=== PATIENT | female | born 1950 | race Caucasian/White ===

== ENCOUNTER → 2023-05-13 | Outpatient (CLI) | payer OTHER, MEDICARE | END | disposition home or self-care (01) | LOC: LAB 10:51 → RAD 10:51 | PROVIDERS: ATTEND Nurse Practitioner | DX: S72.402E Unspecified fracture of lower end of left femur, subsequent encounter for open fracture type I or II with routine healing (principal); S92.902D Unspecified fracture of left foot, subsequent encounter for fracture with routine healing; S82.141D Displaced bicondylar fracture of right tibia, subsequent encounter for closed fracture with routine healing; S92.001D Unspecified fracture of right calcaneus, subsequent encounter for fracture with routine healing; S82.841D Displaced bimalleolar fracture of right lower leg, subsequent encounter for closed fracture with routine healing; X58.XXXD Exposure to other specified factors, subsequent encounter ==

== ENCOUNTER → 2023-07-19 | Outpatient (CLI) | payer MEDICARE, OTHER | END | disposition home or self-care (01) | LOC: MAMMO 13:00 | PROVIDERS: ATTEND Internal Medicine | DX: N60.02 Solitary cyst of left breast (principal); N60.01 Solitary cyst of right breast; N63.11 Unspecified lump in the right breast, upper outer quadrant; N63.41 Unspecified lump in right breast, subareolar ==

== ENCOUNTER 2023-07-24 16:06 | Inpatient (IN) | payer MEDICARE, OTHER ==
[~2023-07-24] VITALS: Ht 157.5 cm; Wt 79.4 kg
[2023-07-24 16:16] VITALS: BP 203/101
[2023-07-24 16:36] LABS: HEMATOCRIT 34.1 % (37.0-47.0); MEAN CELL VOLUME 93.4 fl (81.0-99.0); MEAN CORPUSCULAR HGB CONC 31.1 g/dl (33.0-37.0); MEAN PLATELET VOLUME 11.8 fl (9.6-12.3); NUCLEATED RED BLOOD CELL 0.1 10*3/uL (0.0-0.0); NUCLEATED RED BLOOD CELL 0.3 % (0.0-0.0); PLATELET COUNT AUTOMATED 421 10*3/uL (130-400); RED BLOOD COUNT 3.65 10*6/uL (4.10-5.10); RED CELL DISTRI WIDTH 17.1 % (0-14.5); WHITE BLOOD COUNT 15.5 10*3/uL (4.8-10.8)
[2023-07-24 16:37] LABS: MANUAL DIFF REFLEX YES
[2023-07-24 16:39] VITALS: BP 165/100
[2023-07-24 16:51] LABS: BILIRUBIN Negative (Negative); BLOOD Negative (Negative); CLARITY Cloudy (Clear); COLOR Yellow (Yellow); GLUCOSE Trace (Negative); KETONE Negative (Negative); LEUKO ESTERASE Trace (Negative); NITRITE Positive (Negative); SPECIFIC GRAVITY 1.015 (1.001-1.030); UROBILINOGEN 0.2 E.U./dl (0.0-1.0)
[2023-07-24 16:59] LABS: ACT PARTIAL THROMBO TIME 29.6 SECONDS (20.0-32.1)
[2023-07-24 17:03] VITALS: BP 132/65
[2023-07-24 17:03] LABS: POTASSIUM 5.6 mmol/L (3.4-5.1); TOTAL PROTEIN 7.1 gm/dL (6.0-8.0)
[2023-07-24 17:05] LABS: ACANTHOCYTES FEW; ATYPICAL LYMPHS 1 % (0-0); HOWELL-JOLLY BODIES FEW; PLATELET SUFFICIENCY HIGH (NORMAL); TARGET CELLS MODERATE; TOTAL CELLS COUNTED 100 #CELLS
[2023-07-24 17:17] LABS: BACTERIA TRACE; WBC TNTC wbc/hpf (0-5)
[2023-07-24] MEDS ORDERED: CELEBREX100 MG PO (17:49)
[2023-07-24] MEDS ORDERED: COLACE100 MG PO (17:50)
[2023-07-24] MEDS ORDERED: PRISTIQ50 MG PO (17:50)
[2023-07-24] MEDS ORDERED: GLYCOLAX (17:51)
[2023-07-24] MEDS ORDERED: GABAPENTIN100 M2 PO (17:51)
[2023-07-24] MEDS ORDERED: LIPITOR10 MG PO (17:52)
[2023-07-24] MEDS ORDERED: LOVENOX30 MG/0.3 SC (17:52)
[2023-07-24] MEDS ORDERED: Ipratropium Brom3 ML INH (17:52)
[2023-07-24] MEDS ORDERED: KAPSPARGO SPRIN25 MG PO (17:53)
[2023-07-24 19:43] VITALS: BP 92/48
[2023-07-24 20:47] VITALS: BP 112/48
[2023-07-25] VITALS (8 sets, daily range): BP systolic 128–191; BP diastolic 71–100
[2023-07-25] MEDS ORDERED: TYLENOL325 M1 PO (01:51)
[2023-07-25] MEDS ORDERED: LOPRESSOR25 MG PO (01:54)
[2023-07-25] MEDS ORDERED: TRAMADOL HCL50 MG PO (01:55)
[2023-07-25] MEDS ORDERED: ATARAX,VISTARIL50 MG PO (01:57)
[2023-07-25] MEDS ORDERED: MIRALAX17 GM PO (01:58)
[2023-07-25] MEDS ORDERED: LACTAID3000 UNI1 PO (01:59)
[2023-07-25 02:02] LABS: BILIRUBIN Negative (Negative); BLOOD Negative (Negative); CLARITY Clear (Clear); COLOR Yellow (Yellow); GLUCOSE Negative (Negative); KETONE Negative (Negative); LEUKO ESTERASE Negative (Negative); NITRITE Negative (Negative); SPECIFIC GRAVITY >= 1.030 (1.001-1.030); UROBILINOGEN 0.2 E.U./dl (0.0-1.0)
[2023-07-25 02:15] LABS: CALCIUM OXALATE CRYSTALS Trace; WBC 0-2 wbc/hpf (0-5)
[2023-07-25 04:27] LABS: MEAN CELL VOLUME 91.2 fl (81.0-99.0); MEAN CORPUSCULAR HGB 29.1 pg (27.0-31.0); MEAN CORPUSCULAR HGB CONC 31.9 g/dl (33.0-37.0); MEAN PLATELET VOLUME 11.5 fl (9.6-12.3); NUCLEATED RED BLOOD CELL 0.2 % (0.0-0.0); PLATELET COUNT AUTOMATED 413 10*3/uL (130-400); RED BLOOD COUNT 3.51 10*6/uL (4.10-5.10); RED CELL DISTRI WIDTH 17.2 % (0-14.5); WHITE BLOOD COUNT 16.5 10*3/uL (4.8-10.8)
[2023-07-25 04:28] LABS: MANUAL DIFF REFLEX YES
[2023-07-25 04:37] LABS: ACT PARTIAL THROMBO TIME 40.2 SECONDS (20.0-32.1)
[2023-07-25 04:49] LABS: PLATELET SUFFICIENCY NORMAL (NORMAL); TOTAL CELLS COUNTED 100 #CELLS
[2023-07-25 05:05] LABS: POTASSIUM 5.2 mmol/L (3.4-5.1); TOTAL PROTEIN 6.8 gm/dL (6.0-8.0)
[2023-07-26] VITALS: BP 159/64
[2023-07-26 05:18] LABS: POTASSIUM 4.4 mmol/L (3.4-5.1)
[2023-07-26 06:16] LABS: HEMATOCRIT 31.8 % (37.0-47.0); MEAN CELL VOLUME 89.6 fl (81.0-99.0); MEAN CORPUSCULAR HGB 29.3 pg (27.0-31.0); MEAN CORPUSCULAR HGB CONC 32.7 g/dl (33.0-37.0); MEAN PLATELET VOLUME 12.4 fl (9.6-12.3); NUCLEATED RED BLOOD CELL 0.1 10*3/uL (0.0-0.0); NUCLEATED RED BLOOD CELL 0.4 % (0.0-0.0); PLATELET COUNT AUTOMATED 433 10*3/uL (130-400); RED BLOOD COUNT 3.55 10*6/uL (4.10-5.10); RED CELL DISTRI WIDTH 17.2 % (0-14.5); WHITE BLOOD COUNT 11.4 10*3/uL (4.8-10.8)
[2023-07-26 06:19] LABS: MANUAL DIFF REFLEX YES
[2023-07-26 07:29] LABS: HOWELL-JOLLY BODIES FEW; POLYCHROMASIA SLIGHT; TARGET CELLS FEW; TOTAL CELLS COUNTED 100 #CELLS
[2023-07-26 07:30] LABS: BURR CELLS FEW; PLATELET SUFFICIENCY HIGH (NORMAL)
[2023-07-26 08:00] VITALS: BP 165/88
[2023-07-26 12:00] VITALS: BP 170/94
[2023-07-26 16:00] VITALS: BP 163/82
[2023-07-26 20:00] VITALS: BP 168/83
[2023-07-27] VITALS: BP 135/65
[2023-07-27 05:26] LABS: POTASSIUM 3.9 mmol/L (3.4-5.1)
[2023-07-27 06:22] LABS: BASO % 0.2 % (0.0-1.0); HEMATOCRIT 33.1 % (37.0-47.0); LYMPH # 3.1 10*3/uL (1.3-4.4); LYMPH % 35.5 % (27.0-41.0); MEAN CELL VOLUME 89.7 fl (81.0-99.0); MEAN CORPUSCULAR HGB 29.3 pg (27.0-31.0); MEAN CORPUSCULAR HGB CONC 32.6 g/dl (33.0-37.0); MEAN PLATELET VOLUME 12.7 fl (9.6-12.3); MONO # 1.1 10*3/uL (0.1-1.0); NEUT # 4.4 10*3/uL (2.3-7.9); NUCLEATED RED BLOOD CELL 0.1 10*3/uL (0.0-0.0); PLATELET COUNT AUTOMATED 420 10*3/uL (130-400); RED BLOOD COUNT 3.69 10*6/uL (4.10-5.10); RED CELL DISTRI WIDTH 17.4 % (0-14.5); WHITE BLOOD COUNT 8.6 10*3/uL (4.8-10.8)
[2023-07-27 08:00] VITALS: BP 154/70
[2023-07-27 12:00] VITALS: BP 129/64
[2023-07-27 16:00] VITALS: BP 127/73
[2023-07-27 20:00] VITALS: BP 121/65
[2023-07-28] VITALS: BP 105/58
[2023-07-28 08:00] VITALS: BP 145/85
[2023-07-28 12:00] VITALS: BP 138/74
[2023-07-28 16:00] VITALS: BP 131/60
[2023-07-28 20:00] VITALS: BP 118/57
[2023-07-29] VITALS: BP 124/75
[2023-07-29 06:12] LABS: BUN 25 mg/dl (9-23); CHLORIDE 96 mmol/L (98-107); POTASSIUM 3.5 mmol/L (3.4-5.1)
[2023-07-29 08:00] VITALS: BP 128/70
[2023-07-29 12:00] VITALS: BP 130/78
[2023-07-29 16:00] VITALS: BP 113/54
[2023-07-29 20:00] VITALS: BP 119/51; BP 127/65
[2023-07-30] VITALS: BP 113/66
[2023-07-30 08:00] VITALS: BP 119/57
[2023-07-30 08:16] LABS: HEMATOCRIT 37.6 % (37.0-47.0); MEAN CELL VOLUME 89.1 fl (81.0-99.0); MEAN CORPUSCULAR HGB 28.7 pg (27.0-31.0); MEAN CORPUSCULAR HGB CONC 32.2 g/dl (33.0-37.0); MEAN PLATELET VOLUME 12.9 fl (9.6-12.3); NUCLEATED RED BLOOD CELL 0.4 % (0.0-0.0); PLATELET COUNT AUTOMATED 391 10*3/uL (130-400); RED BLOOD COUNT 4.22 10*6/uL (4.10-5.10); RED CELL DISTRI WIDTH 16.8 % (0-14.5); WHITE BLOOD COUNT 9.8 10*3/uL (4.8-10.8)
[2023-07-30 08:17] LABS: MANUAL DIFF REFLEX YES
[2023-07-30 08:31] LABS: BUN 27 mg/dl (9-23); CHLORIDE 92 mmol/L (98-107); POTASSIUM 3.1 mmol/L (3.4-5.1)
[2023-07-30 08:43] LABS: POLYCHROMASIA SLIGHT; TARGET CELLS FEW; TOTAL CELLS COUNTED 100 #CELLS
[2023-07-30 08:44] LABS: HOWELL-JOLLY BODIES FEW; OVALOCYTES FEW; PLATELET SUFFICIENCY NORMAL (NORMAL); ROULEAUX SLIGHT
[2023-07-30 12:00] VITALS: BP 122/70
[2023-07-30 16:00] VITALS: BP 115/62
[2023-07-30 20:00] VITALS: BP 90/53
[2023-07-31] VITALS: BP 101/44
[2023-07-31 07:57] VITALS: BP 109/53
[2023-07-31 08:52] LABS: BUN 35 mg/dl (9-23); CHLORIDE 91 mmol/L (98-107); POTASSIUM 2.9 mmol/L (3.4-5.1)
[2023-07-31 11:38] VITALS: BP 138/67
[2023-07-31 16:00] VITALS: BP 129/59
[2023-07-31 20:00] VITALS: BP 97/65
[2023-08-01] VITALS: BP 106/45
[2023-08-01 06:17] LABS: POTASSIUM 3.5 mmol/L (3.4-5.1)
[2023-08-01 07:46] LABS: HEMATOCRIT 39.7 % (37.0-47.0); MEAN CELL VOLUME 89.8 fl (81.0-99.0); MEAN CORPUSCULAR HGB 28.3 pg (27.0-31.0); MEAN CORPUSCULAR HGB CONC 31.5 g/dl (33.0-37.0); MEAN PLATELET VOLUME 12.8 fl (9.6-12.3); NUCLEATED RED BLOOD CELL 0.3 % (0.0-0.0); PLATELET COUNT AUTOMATED 366 10*3/uL (130-400); RED BLOOD COUNT 4.42 10*6/uL (4.10-5.10); RED CELL DISTRI WIDTH 16.7 % (0-14.5); WHITE BLOOD COUNT 12.7 10*3/uL (4.8-10.8)
[2023-08-01 07:50] LABS: MANUAL DIFF REFLEX YES
[2023-08-01 08:00] VITALS: BP 117/60
[2023-08-01 08:12] LABS: BURR CELLS FEW; HOWELL-JOLLY BODIES FEW; PLATELET SUFFICIENCY NORMAL (NORMAL); POLYCHROMASIA SLIGHT; SCHISTOCYTES FEW; TARGET CELLS FEW; TOTAL CELLS COUNTED 100 #CELLS
[2023-08-01 12:00] VITALS: BP 103/54
[2023-08-01] MEDS ORDERED: LISINOPRIL5 MG PO (14:13)
[2023-08-01] MEDS ORDERED: TORSEMIDE20 MG PO (14:13)
[2023-08-01] MEDS ORDERED: AMLODIPINE BESY10 MG PO (14:13)
[2023-08-01] MEDS ORDERED: GABAPENTIN100 M2 PO (14:13)
[2023-08-01] MEDS ORDERED: ASPIRIN ADULT L81 M2 PO (14:13)
[2023-08-01] MEDS ORDERED: K-TAB10 MEQ PO (14:13)
[2023-08-01] MEDS ORDERED: METOPROLOL SUCC25 M2 PO (14:13)
[2023-08-01] MEDS ORDERED: JARDIANCE10 MG PO (14:13)
[2023-08-01] MEDS ORDERED: ATORVASTATIN CA80 M1 PO (14:13)
[2023-08-01 16:00] VITALS: BP 116/57
[2023-08-01 20:00] VITALS: BP 90/44
[2023-08-02] VITALS: BP 113/55
[2023-08-02 07:19] LABS: HEMATOCRIT 40.3 % (37.0-47.0); MEAN CELL VOLUME 88.4 fl (81.0-99.0); MEAN CORPUSCULAR HGB 28.1 pg (27.0-31.0); MEAN CORPUSCULAR HGB CONC 31.8 g/dl (33.0-37.0); MEAN PLATELET VOLUME 13.2 fl (9.6-12.3); NUCLEATED RED BLOOD CELL 0.3 % (0.0-0.0); PLATELET COUNT AUTOMATED 344 10*3/uL (130-400); RED BLOOD COUNT 4.56 10*6/uL (4.10-5.10); RED CELL DISTRI WIDTH 16.7 % (0-14.5); WHITE BLOOD COUNT 15.1 10*3/uL (4.8-10.8)
[2023-08-02 07:42] LABS: CHLORIDE 88 mmol/L (98-107); POTASSIUM 3.5 mmol/L (3.4-5.1)
[2023-08-02 07:45] LABS: BUN 44 mg/dl (9-23)
[2023-08-02 07:49] LABS: MANUAL DIFF REFLEX YES
[2023-08-02 07:50] LABS: TOTAL CELLS COUNTED 100 #CELLS
[2023-08-02 07:51] LABS: PLATELET SUFFICIENCY NORMAL (NORMAL)
[2023-08-02 08:00] VITALS: BP 95/52
[2023-08-02 12:00] VITALS: BP 117/54
== END 2023-08-02 14:05 | DRG 871 ==
LOC: ED 16:06 → EDHOLD 22:45 → ICCU 22:45 → 4E 07-28 06:09
PROVIDERS: Family Medicine; Internal Medicine; Registered Nurse; Student in an Organized Health Care Education/Training Program; ADMIT Student in an Organized Health Care Education/Training Program; ATTEND Student in an Organized Health Care Education/Training Program
PROC: 5A09357 Assistance with Respiratory Ventilation, Less than 24 Consecutive Hours, Continuous Positive Airway Pressure (ICD-10-PCS; 2023-07-24)
PROC: 5A0935A Assistance with Respiratory Ventilation, Less than 24 Consecutive Hours, High Flow/Velocity Cannula (ICD-10-PCS; principal; 2023-07-25)
PROC: XW033E5 Introduction of Remdesivir Anti-infective into Peripheral Vein, Percutaneous Approach, New Technology Group 5 (ICD-10-PCS; 2023-07-26)
PROC: 5A0935A Assistance with Respiratory Ventilation, Less than 24 Consecutive Hours, High Flow/Velocity Cannula (ICD-10-PCS; 2023-07-26)
DX: A41.89 Other specified sepsis (principal); I21.4 Non-ST elevation (NSTEMI) myocardial infarction; U07.1 COVID-19; J69.0 Pneumonitis due to inhalation of food and vomit; N17.0 Acute kidney failure with tubular necrosis; J96.00 Acute respiratory failure, unspecified whether with hypoxia or hypercapnia; I50.33 Acute on chronic diastolic (congestive) heart failure; I16.1 Hypertensive emergency; N30.00 Acute cystitis without hematuria; J44.1 Chronic obstructive pulmonary disease with (acute) exacerbation; E87.20 Acidosis, unspecified; E87.1 Hypo-osmolality and hyponatremia; E44.1 Mild protein-calorie malnutrition; Z20.822 Contact with and (suspected) exposure to COVID-19; Z88.1 Allergy status to other antibiotic agents; Z88.8 Allergy status to other drugs, medicaments and biological substances; Z66 Do not resuscitate; E78.5 Hyperlipidemia, unspecified; G47.30 Sleep apnea, unspecified; R65.20 Severe sepsis without septic shock; R74.01 Elevation of levels of liver transaminase levels; R80.9 Proteinuria, unspecified; E87.5 Hyperkalemia; R73.9 Hyperglycemia, unspecified; F32.9 Major depressive disorder, single episode, unspecified; G62.9 Polyneuropathy, unspecified; J30.2 Other seasonal allergic rhinitis; K76.0 Fatty (change of) liver, not elsewhere classified; I70.90 Unspecified atherosclerosis; F41.1 Generalized anxiety disorder; D72.9 Disorder of white blood cells, unspecified; R71.8 Other abnormality of red blood cells; D75.839 Thrombocytosis, unspecified; I11.0 Hypertensive heart disease with heart failure